=== PATIENT | male | born 1955 | race Caucasian/White ===

== ENCOUNTER 2025-04-25 02:51 | Emergency (ER) | payer MEDICARE, OTHER | END 2025-04-25 04:21 | disposition home or self-care (01) | LOC: ERS 02:51 | DX: S70.11XA Contusion of right thigh, initial encounter (principal); I10 Essential (primary) hypertension; E11.9 Type 2 diabetes mellitus without complications; Z79.899 Other long term (current) drug therapy; Z79.84 Long term (current) use of oral hypoglycemic drugs; X58.XXXA Exposure to other specified factors, initial encounter | CPT/HCPCS: 99283 ==